=== PATIENT | male | born 1980 | race Caucasian/White ===

== ENCOUNTER 2019-08-08 16:22 | Emergency (ER) | payer OTHER ==
[~2019-08-08] VITALS: Ht 177.8 cm; Wt 73.0 kg
[2019-08-08] MEDS ORDERED: SODIUM CHLORIDE 0.9% 1,000 ML IV ONE (16:31)
--- NOTE | 2019-08-08 16:35 | NUR ---
PT BIB BY [facility]. PT FELT DIZZY IN CHECKOUT LINE AT STORE. STATED HE SAT DOWN. AND WITNESSESS SAY "HE WAS OUT FOR 15 SECONDS". PT DENIES HX OF SEIZURE. PT HOOKED UP TO COMMERCIAL DRONE PILOT. EKG DONE.
--- NOTE | 2019-08-08 16:43 | NUR ---
PT DID NOT WANT ZOFRAN OR MORPHINE
[2019-08-08] MEDS ORDERED: PLEASE ENTER ALLERGIES MC SCH (17:00)
[2019-08-08] MEDS ORDERED: MORPHINE SULFATE 4 MG/ML, 1ML IVPush PRN (17:00)
[2019-08-08] MEDS ORDERED: SODIUM CHLORIDE FLUSH 10ML SYR IVF ONE (17:00)
[2019-08-08] MEDS ORDERED: ONDANSETRON 2MG/ML, 2ML IVPush ONE (17:00)
[2019-08-08 17:16] LABS: ALANINE AMINOTRANSFERASE 52 U/L (12-78); ALBUMIN 3.7 g/dL (3.4-5.0); ANION GAP 14 mmol/L (5-15); CALCIUM 8.6 mg/dL (8.5-10.1); CHLORIDE 103 mmol/L (98-107); CREATININE 1.38 mg/dL (0.7-1.3)
[2019-08-08 17:20] LABS: ALKALINE PHOSPHATASE 94 U/L (45-117); BILIRUBIN,TOTAL 1.3 mg/dL (0.2-1.0); TOTAL PROTEIN 7.4 g/dL (6.4-8.2); TROPONIN I < 0.015 ng/mL (0.000-0.045)
--- NOTE | 2019-08-08 17:24 | NUR ---
PT IS BEING TAKEN TO CT AT THIS TIME
[2019-08-08 17:26] LABS: BASOPHILS # (AUTO) 0.01 x10^3/uL (0-0.1); BASOPHILS % (AUTO) 0 % (0-1); EOSINOPHILS # (AUTO) 0.03 x10^3/uL (0-0.4); EOSINOPHILS % (AUTO) 1 % (1-7); LYMPHOCYTES # (AUTO) 0.64 x10^3/uL (1-3.4); LYMPHOCYTES % (AUTO) 12 % (22-44); MD NO; MEAN CORPUSCULAR HEMOGLOBIN 35.3 pg (27.5-34.5); MEAN CORPUSCULAR HGB CONC 34.5 g/dL (33.2-36.2); MEAN CORPUSCULAR VOLUME 102.4 fL (81-97); MEAN PLATELET VOLUME 7.5 fL (7.4-10.4); MONOCYTES # (AUTO) 0.47 x10^3/uL (0.2-0.8); MONOCYTES % (AUTO) 9 % (2-9); NEUTROPHILS # (AUTO) 4.14 x10^3/uL (1.8-6.8); NEUTROPHILS % (AUTO) 78 % (42-75); PLATELET COUNT 196 x10^3/uL (130-400); RED BLOOD COUNT 4.01 x10^6/uL (4.38-5.82); RED CELL DISTRIBUTION WIDTH 12.8 % (9.4-14.8)
[2019-08-08 17:28] LABS: INTERNATIONAL NORMALIZED RATIO 1.01 (0.93-1.1); PROTHROMBIN TIME 10.7 Seconds (9.6-11.5)
--- NOTE | 2019-08-08 17:36 | NUR ---
PT REFUSED TO HAVE CT SCAN ON HEAD AND CHEST. MD CORBETT
--- NOTE | 2019-08-08 18:59 | NUR ---
REPORT GIVEN TO FRANCISCO MORRIS AND FRANCISCO ADAMS.
[2019-08-08 19:14] VITALS: BP 163/103
--- NOTE | 2019-08-08 19:15 | NUR ---
PT REFUSING TEST, MEDICATION. STATED THAT I SEEN ERP ALREADY AND I'M GOING TO GO HOME, DISCUSSED LEAVING AMA, PT VERBALIZED UNDERSTADING AND STATED THAT HE IS STILL LEAVING AMA THAT HIS PARTNER IS ON HIS WAY TO PICK HIM UP NOW FROM THIS HOSPITAL
== END 2019-08-08 19:48 | disposition left against medical advice (07) ==
LOC: ED 18:45
DX: G40.409 Other generalized epilepsy and epileptic syndromes, not intractable, without status epilepticus (principal); F10.239 Alcohol dependence with withdrawal, unspecified; R00.0 Tachycardia, unspecified; Y90.9 Presence of alcohol in blood, level not specified
CPT/HCPCS: 36415; 80053; 83880; 84484; 85025; 85610; 85730; 93005; 99284; J7030